=== PATIENT | male | born 1980 | race Caucasian/White ===

== ENCOUNTER → 2016-03-27 | Outpatient (REF) ==
[~2016-03-27] MED LIST: NORCO 325 MG-7.1 TAB PO; PERCOCET 5/321 UDTAB PO; PRINZIDE 12.5 M1 TA1 PO; PRINZIDE 25 MG-1 TAB PO; ZEBETA10 MG PO
== END ==
LOC: WSOH 10:48
DX: Z01.83 Encounter for blood typing (principal)

== ENCOUNTER 2016-07-03 06:03 | Day surgery (SDC) | payer BC ==
[~2016-07-03] VITALS: Ht 182.9 cm; Wt 185.2 kg
[~2016-07-03 06:03] MED LIST changes: -NORCO 325 MG-7.1 TAB PO; -PRINZIDE 12.5 M1 TA1 PO; -PRINZIDE 25 MG-1 TAB PO; -ZEBETA10 MG PO
[2016-07-03] MEDS ORDERED: PRINZIDE 12.5 M1 TA1 PO (06:26)
[2016-07-03] MEDS ORDERED: ZEBETA10 MG PO (06:27)
[2016-07-03 06:44] VITALS: BP 147/94; PULSE 62; TEMP 98.8
[2016-07-03 07:34] VITALS: BP 116/70; PULSE 56; TEMP 97.7
[2016-07-03 07:50] VITALS: BP 130/88; PULSE 56
[2016-07-03 08:10] VITALS: BP 125/78; PULSE 59
== END 2016-07-03 08:16 | disposition home or self-care (01) ==
LOC: SDCO 06:03
DX: R19.7 Diarrhea, unspecified (principal); R10.11 Right upper quadrant pain; I10 Essential (primary) hypertension; E66.01 Morbid (severe) obesity due to excess calories; Z87.891 Personal history of nicotine dependence
CPT/HCPCS: J2704; J7030

== ENCOUNTER 2016-08-12 06:03 | Day surgery (SDC) | payer BC ==
[~2016-08-12] VITALS: Ht 182.9 cm; Wt 183.3 kg
[2016-08-12] VITALS (8 sets, daily range): BP systolic 132–168; BP diastolic 59–92; PULSE 62–72; TEMP 97.4–97.6
[~2016-08-12 06:03] MED LIST changes: +PRINZIDE 12.5 M1 TA1 PO; +ZEBETA10 MG PO
[2016-08-12] MEDS ORDERED: PRINZIDE 25 MG-1 TAB PO (06:58)
[2016-08-12] MEDS ORDERED: NORCO 325 MG-7.1 TAB PO (12:51)
== END 2016-08-12 14:54 | disposition home or self-care (01) ==
LOC: SDCO 06:03
DX: K81.9 Cholecystitis, unspecified (principal); K82.8 Other specified diseases of gallbladder; E66.01 Morbid (severe) obesity due to excess calories; K76.0 Fatty (change of) liver, not elsewhere classified; K66.0 Peritoneal adhesions (postprocedural) (postinfection); I10 Essential (primary) hypertension; G47.33 Obstructive sleep apnea (adult) (pediatric); Z80.0 Family history of malignant neoplasm of digestive organs; Z83.79 Family history of other diseases of the digestive system; Z87.891 Personal history of nicotine dependence; Z68.43 Body mass index [BMI] 50.0-59.9, adult
CPT/HCPCS: J0330; J0690; J1885; J2405; J2704; J2710; J2765; J3010; J7120